=== PATIENT | female | born 1940 | race Caucasian/White ===

== ENCOUNTER → 2023-07-24 14:13 | Outpatient (REF) | payer OTHER, SELFPAY | LOC: RAD 14:13 | PROVIDERS: ATTENDING PHYSICIAN Family Medicine | DX: M81.0 Age-related osteoporosis without current pathological fracture (principal) | CPT/HCPCS: 77080 ==

== ENCOUNTER → 2025-03-12 09:27 | Outpatient (REF) | payer OTHER, SELFPAY | LOC: RAD 09:27 | PROVIDERS: ATTENDING PHYSICIAN Family Medicine | DX: M54.42 Lumbago with sciatica, left side (principal); M25.552 Pain in left hip | CPT/HCPCS: 72110; 73522 ==

== ENCOUNTER 2025-03-23 06:10 | Outpatient (RCR) | payer OTHER, SELFPAY | END 2025-03-23 23:59 | disposition home or self-care (01) | LOC: RPT 06:10 | PROVIDERS: ATTENDING PHYSICIAN Family Medicine; FAMILY PHYSICIAN Family Medicine | DX: M25.552 Pain in left hip (principal); M54.42 Lumbago with sciatica, left side | CPT/HCPCS: 80053; 85025; 93005; 97163; 97535 ==

== ENCOUNTER 2025-03-23 17:51 | Emergency (ER) | payer OTHER, SELFPAY ==
[2025-03-23 17:54] VITALS: BP 205/86
[2025-03-23 18:32] VITALS: BP 201/76
[2025-03-23 18:33] VITALS: BMI 24.7
[2025-03-23 18:57] LABS: Hematocrit 47.3 % (37.0-47.0); Hemoglobin 16.1 g/dL (12.0-16.0); Mean Corp Hgb Conc. 34.0 g/dL (33.0-37.0); Mean Corpuscular Volume 86.9 fL (81.0-99.0); Nucleated Red Blood Cells % 0 %; Platelet Count 222 10^3/uL (130-400); Red Cell Dist. Width 13.8 % (11.5-14.5)
[2025-03-23 19:00] VITALS: BP 186/69
[2025-03-23 19:14] LABS: ALT (SGPT) 57 U/L (0-35); AST (SGOT) 57 U/L (14-36); Albumin 4.3 g/dl (3.5-5.0); Alkaline Phosphatase 106 U/L (38-126); Blood Urea Nitrogen 24 mg/dl (7-17); Calcium 9.5 mg/dl (8.4-10.2); Carbon Dioxide 23 mmol/L (22-30); Chloride 108 mmol/L (98-107); Estimated Creatinine Clearance 40 ml/min; Glucose 98 mg/dl (70-99); Potassium 3.9 mmol/L (3.5-5.1); Sodium 138 mmol/L (135-145); Total Protein 8.3 g/dl (6.3-8.2); eGFR > 60.00
[2025-03-23 20:00] VITALS: BP 195/78
[2025-03-23 21:00] VITALS: BP 195/76
--- NOTE | 2025-03-23 21:09 | ED.GENMED ---
History of Present Illness
General
Chief Complaint: Blood Pressure Problem
Source: patient and family
Time Seen by Provider: 03/23/25 20:56
History of Present Illness
History of Present Illness:
84-year-old female presents to the emergency room for evaluation of elevated blood pressure. Patient was at physical therapy and they noted her blood pressure to be high in the 190s to 200s. Patient has no symptoms. She denies specificly having
any chest pain, shortness of breath, back pain or abdominal pain. She denies any focal weakness numbness or tingling. She has not had a headache up until recently she began developing headache here in the emergency room. Is a mild headache rated
5 out of 10. Patient states her blood pressure medications were switched about 6 weeks ago. She was on amlodipine and benazepril. She was developing some swelling of her ankles which is bothersome to her so she was switched to benazepril with
hydrochlorothiazide. She did take her medication today. She only takes Tylenol as an umqy-ltt-[id number] medication.
Past History
Past History
ED Past Medical History: HTN
ED Past Surgical History: Cholecystectomy and Gynecological (MARY/BSO)
Social History
Tobacco: Non-smoker
Alcohol: None
Drug: None
Phy Exam
Physical Exam
Physical Exam:
General: Awake, Alert, Oriented X3. No acute distress.
Vitals: Hypertensive
Head: Atraumatic
Eyes: Pupils equal, EOMI
Throat: Airway intact, no exudates
Neck: Trachea midline
Lungs: Clear and equal b/l
Heart: Regular rate, no murmurs
Abd: Soft, Nontender, No pulsatile mass
Neuro: Nonfocal
Skin: Warm, dry, no rash
Extremities: pulses equal b/l, no edema
Course
Orders/Labs/Results
Orders:
Orders
03/23/25 18:48
CMP [Comprehensive Metabolic Panel] Urgent
Complete Blood Count/With Diff Urgent
03/23/25 21:06
Acetaminophen [Tylenol] 650 mg PO NOW STA
HydrALAZINE [Apresoline] 10 mg PO NOW STA
03/23/25 21:11
Electrocardiogram (*1) Urgent
Reason for Study: Hypertension, Benign
EKG- Treatment ONCE
Abnormal Lab Results
03/23/25
18:48
RBC 5.44 H 10^6/uL
(4.20-5.40)
Hgb 16.1 H g/dL
(12.0-16.0)
Hct 47.3 H %
(37.0-47.0)
Absolute Monos (auto) 0.9 H 10^3/uL
(0.1-0.6)
Monocytes % 12.7 H %
(1.7-9.3)
Chloride 108 H mmol/L
(98-107)
BUN 24 H mg/dl
(7-17)
AST 57 H U/L
(14-36)
ALT 57 H U/L
(0-35)
Total Protein 8.3 H g/dl
(6.3-8.2)
03/23/25 18:48
03/23/25 18:48
Vital Signs
Initial and Last Documented VS:
Initial Vital Signs
Temp Pulse Resp BP Pulse Ox
97.9 F 71 16 205/86 98
03/23/25 17:54 03/23/25 17:54 03/23/25 17:54 03/23/25 17:54 03/23/25 17:54
Last Documented Vital Signs
Temp Pulse Resp BP Pulse Ox
97.9 F 69 16 179/68 95
03/23/25 17:54 03/23/25 21:15 03/23/25 17:54 03/23/25 22:00 03/23/25 22:00
MDM/Problems Addressed
Differential Diagnosis Includes:
Uncontrolled hypertension, renal insufficiency, hypertensive emergency
MDM/Problems Addressed:
Patient presents with asymptomatic hypertension. Labs are unremarkable save for very mildly elevated AST and ALT. Blood pressure remained fairly high in the 190 systolic. There is a hydralazine given. Patient instructed to increase the dose of
her blood pressure medicines to 2 tablets a day.
*Pulse Oximetry
SaO2: 97
Oxygen Mode of Delivery: Room air
Patient hypoxic: no
*EKG
Heart Rate: 77
Rate: normal
Rhythm: sinus
[place]: normal axis
Interval: long QT
QRS Pattern: normal QRS
Ischemia: no ischemia
*[facility] Consultant Interpretation
Rate: normal
Interpretation: normal
Rhythm: sinus
*Critical Care Note
Total Time (30-74mins, 75-104mins- exclusive of procedures): Not Applicable
ED Attending Note
-
Portions of this chart may have been created with voice recognition software.� Occasional wrong word or��sound alike� substitutions may have occurred due to the inherent limitations of voice recognition software.
Discharge Plan
Departure
Patient Disposition: Home (Routine Discharge)
Date of Disposition: 03/23/25
Time of Disposition: 22:12
Patient with high blood pressure during this ER visit?: Yes
Condition: Good
Discharge Problem:
Uncontrolled hypertension
Instructions: High Blood Pressure (DC)
Prescriptions:
No Action
amlodipine-benazepril 1 CAPSULE capsule
1 cap PO DAILY
loratadine 10 MG tablet
1 tab PO DAILY
omega 3-vlx-hed-fish oil 1 EACH capsule
2 ea PO DAILY
ascorbic acid (vitamin C) 500 MG capsule
500 mg PO DAILY
Referrals:
Bebeto Viramontes MD [Family Provider, Family Practice]
Activity Restrictions/Additional Instructions:
Increase the dose of your blood pressure medications to two pills and call your doctor for a follow up appointment.
Interventions
Interventions:
*Risk Screen - Suicide Last Done: 03/23/25 17:54
*General Assessment Last Done: 03/23/25 17:54
*Neglect/Abuse Screening Last Done: 03/23/25 17:54
*ED- Fall Risk Assessment Last Done: 03/23/25 18:34
*ED COVID-19 Vaccine History Last Done: 03/23/25 18:34
*ED Influenza Vaccine History Last Done: 03/23/25 18:34
*Nursing Disposition Last Done: 03/23/25 22:25
ED- Cardiac Assessment Last Done: 03/23/25 18:34
ED- Neurological Assessment Last Done: 03/23/25 18:34
ED- Pulmonary Assessment Last Done: 03/23/25 18:34
Discharge Date and Time
Discharge Date/Time: 03/23/25 22:27
Print Language: MARTINIQUAIS
[2025-03-23] MEDS: APRESOLINE 10 MG PO (21:15)
[2025-03-23] MEDS: TYLENOL 650 MG PO (21:16)
[2025-03-23 22:00] VITALS: BP 179/68
== END 2025-03-23 22:27 | disposition home or self-care (01) ==
LOC: EMR 17:51
PROVIDERS: Emergency Medicine; EMERGENCY PHYSICIAN Emergency Medicine; FAMILY PHYSICIAN Family Medicine
DX: I10 Essential (primary) hypertension (principal); R51.9 Headache, unspecified; Z79.899 Other long term (current) drug therapy
CPT/HCPCS: 80053; 85025; 93005; 99283

== ENCOUNTER 2025-04-27 09:49 | Outpatient (RCR) | payer OTHER, SELFPAY | END 2025-04-27 23:59 | disposition home or self-care (01) | LOC: RPT 09:49 | PROVIDERS: ATTENDING PHYSICIAN Family Medicine; FAMILY PHYSICIAN Family Medicine | DX: M25.552 Pain in left hip (principal); M54.42 Lumbago with sciatica, left side; Z73.6 Limitation of activities due to disability; R26.89 Other abnormalities of gait and mobility | CPT/HCPCS: 97110; 97530; 97535 ==